=== PATIENT | male | born 1970 | race Caucasian/White ===

== ENCOUNTER 2016-07-22 18:23 | Emergency (ER) | payer OTHER ==
[2016-07-22] MEDS ORDERED: ONDANSETRON ODT 4 MG TABLET TL STA (19:47)
[2016-07-22] MEDS ORDERED: oxyCOD/ACETAMIN 5 MG/325 MG TABLET PO STA (19:47)
[2016-07-22] MEDS ORDERED: oxyCOD/ACETAMIN 5 MG/325 MG TABLET PO ONE (19:48)
[2016-07-22] MEDS ORDERED: ONDANSETRON ODT 4 MG TABLET ONE (19:48)
--- NOTE | 2016-07-22 19:49 | ED Physician Documentation ---
PD HPI Fall - Stated complaint Stated Complaint: R ELBOW/CHEST WALL INJURY - Chief complaint Chief Complaint: Trauma Ch/Bk - History obtained from History obtained from: Patient, Family - History of Present Illness Mechanism of injury: Slipped (off ladder) Where injury occurred: Home Timing - onset: Last night Injury(ies) location: Head, Chest, Right Upper Extremity (elbow) Pain level max: 8 Pain level now: 7 Quality of pain: Pain, Aching, Dull Associated symptoms: No: LOC, AMS, Amnesia, Seizures, Ear drainage, Nasal drainage, Neck pain, Weakness, Paresthesias, Dyspnea, Nausea / vomiting, Hematemesis, Abdominal distension Symptoms improve with: Rest Worsens with: Movement, Palpation Contributing factors: No: Anticoagulated, Intoxicated Similar symptoms before: Has not had sx before Recently seen: Not recently seen Review of Systems Constitutional: denies: Fever, Chills Respiratory: denies: Dyspnea, Cough, Wheezing GI: denies: Nausea, Vomiting, Diarrhea Skin: denies: Rash Musculoskeletal: denies: Neck pain, Back pain Neurologic: denies: Headache PD PAST MEDICAL HISTORY - Past Medical History Past Medical History: Yes Cardiovascular: Hypertension - Past Surgical History Past Surgical History: Yes HEENT: Myringotomy (tubes) - Present Medications Home Medications: Ambulatory Orders Medication Instructions Recorded Confirmed Lisinopril 20 mg PO DAILY 07/22/16 07/22/16 Modafinil 100 mg PO DAILY 07/22/16 07/22/16 Ondansetron Odt [Zofran] 4 mg TL Q6H PRN #20 tablet 07/22/16 Oxycodone HCl/Acetaminophen 1 - 2 each PO Q6H PRN #20 tablet 07/22/16 [Percocet 5-325 mg Tablet] Zolpidem Tartrate [Ambien] 12.5 mg PO DAILY PM 07/22/16 07/22/16 diazePAM [Valium] 5 mg PO TID PRN #15 tablet 07/22/16 - Allergies Allergies/Adverse Reactions: Allergies Allergy/AdvReac Type Severity Reaction Status Date / Time No Known Drug Allergies Allergy Verified 07/22/16 18:33 - Social History Does the pt smoke?: No Smoking Status: Never smoker Does the pt drink ETOH?: Yes Does the pt have substance abuse?: No - Immunizations Immunizations are current?: Yes - POLST Patient has POLST: No PD ED PE NORMAL - Vitals Vital signs reviewed: Yes - General General: Alert and oriented X 3, No acute distress - HEENT HEENT: PERRL, Moist mucous membranes, Other (abrasion to the forehead.) - Neck Neck: Supple, no meningeal sign, No bony TTP - Cardiac Cardiac: RRR, Strong equal pulses - Respiratory Respiratory: No respiratory distress, Clear bilaterally, Other (ecchymosis and TTP over the R upper ribs. No crepitus. ) - Back Back: No spinal TTP - Derm Derm: Warm and dry - Extremities Extremities: Other (TTP over the R radial head and elbow. Pain with supination and pronation. NVI.) - Neuro Neuro: Alert and oriented X 3 - Psych Psych: Normal mood, Normal affect Results - Vitals Vitals: Vital Signs - 24 hr 07/22/16 07/22/16 18:29 21:00 Temperature 36.6 C Heart Rate 104 H 110 H Respiratory 16 16 Rate Blood Pressure 130/90 H 136/91 H O2 Saturation 100 97 Oxygen O2 Source Room air - Rads (name of study) R elbow xray Radiology: Prelim report reviewed, EMP read contemporaneously, See rad report ( Acute displaced radial head fracture. No dislocation. Large elbow joint effusion. ) ribs xray Radiology: Prelim report reviewed, EMP read contemporaneously, See rad report ( Nondisplaced anterior right fourth rib fracture. Occult fractures of the right fourth, fifth, and sixth ribs not excluded given the adjacent pleural thickening. No acute pulmonary process. ) PD MEDICAL DECISION MAKING - ED course Complexity details: reviewed results, re-evaluated patient, considered differential, d/w patient, d/w family ED course: Patient is a 46-year-old male who fell last night at home off of a ladder. Has a displaced right radial head fracture. Placed in a sling. Discussed the case with Dr. Esparza, orthopedics will follow up the patient in the office. Also has a right fourth rib fracture. No pneumothorax or hemothorax. Pain well controlled. Will place on pain medication for home. Ambulating well. No evidence of intracranial hemorrhage or skull fracture that require repair. GCS 15. Patient counseled regarding signs and symptoms for which I believe and urgent re-evaluation would be necessary. Patient with good understanding of and agreement to plan and is comfortable going home at this time This document was made in part using voice recognition software. While efforts are made to proofread this document, sound alike and grammatical errors may occur. Departure - Departure Disposition: 01 Home, Self Care Clinical Impression: Radial head fracture, closed Qualifiers: Encounter type: initial encounter Fracture alignment: displaced Laterality: right Qualified Code(s): S52.121A - Displaced fracture of head of right radius, initial encounter for closed fracture Contusion of rib on right side Qualifiers: Encounter type: initial encounter Qualified Code(s): S20.211A - Contusion of right front wall of thorax, initial encounter Condition: Good Instructions: ED Contusion Vs Minor Fx Rib, ED Fx Upper Ext Follow-Up: Mark Arnett MD [Primary Care Provider] - Prescriptions: Oxycodone HCl/Acetaminophen [Percocet 5-325 mg Tablet] 1 - 2 each PO Q6H PRN # 20 tablet PRN Reason: pain diazePAM [Valium] 5 mg PO TID PRN #15 tablet PRN Reason: Spasms Ondansetron Odt [Zofran] 4 mg TL Q6H PRN #20 tablet PRN Reason: Nausea / Vomiting Comments: Wear the sling until released by orthopedics. Return if you worsen.Do not drink alcohol or drive while on narcotic pain medicine. Note that many narcotic pain relievers also contain tylenol/acetaminophen. Please ensure that your total dose of acetaminophen from all sources does not exceed 3 grams (3000mg) per day. You may constipated on this medication, take a stool softener such as "Colace" twice a day while you are on it. Also recommend a [id number] laxative such as senna or MiraLAX any day that you do not have a bowel movement. If you received narcotic pain medication in the emergency department, do not drive or operate machinery for the next 24 hours. Discharge Date/Time: 07/22/16 21:01
--- NOTE | 2016-07-22 20:08 | XRAY Preliminary Report ---
Exam: XR Elbow 3 View RT IMPRESSION: 1. Acute displaced radial head fracture. 2. No dislocation. 3. Large elbow joint effusion. [facility] SITE ID: [id number]
[2016-07-22] MEDS ORDERED: diazePAM 5 MG TABLET PO STA (20:46)
[2016-07-22] MEDS ORDERED: oxyCODONE/ACET 5/325 Prepack 4 PO STA (20:46)
[2016-07-22] MEDS ORDERED: diazePAM 5 MG TABLET PO ONE (20:47)
[2016-07-22] MEDS ORDERED: oxyCODONE/ACET 5/325 Prepack 4 PO ONE (20:48)
[2016-07-22 21:01] VITALS: BP 136/91
--- NOTE | 2016-07-22 21:18 | XRAY Report ---
EXAM: RIGHT ELBOW RADIOGRAPHY EXAM DATE: 07/22/2016 07:35 PM. CLINICAL HISTORY: Fall. COMPARISON: None. TECHNIQUE: 3 views. FINDINGS: Bones: Acute impacted and displaced volar radial head fracture with 3 mm of displacement of the radia l head fragment in a distal direction. Joints: Large elbow joint effusion. No dislocation is noted. Soft Tissues: Normal. No soft tissue swelling. IMPRESSION: 1. Acute displaced radial head fracture. 2. No dislocation. 3. Large elbow joint effusion. [facility] Referring Provider Line: [phone] SITE ID: [id number]
--- NOTE | 2016-07-22 21:26 | XRAY Preliminary Report ---
Exam: XR Ribs w/PA Chest RT IMPRESSION: 1. Nondisplaced anterior right fourth rib fracture. Occult fractures of the right fourth, fifth and s ixth rib is not excluded given the adjacent pleural thickening. 2. No acute pulmonary process. [facility] SITE ID: [id number]
--- NOTE | 2016-07-22 22:36 | XRAY Report ---
EXAM: RIGHT RIB RADIOGRAPHY EXAM DATE: 07/22/2016 07:34 PM. CLINICAL HISTORY: Pain after a fall. COMPARISON: None. TECHNIQUE: PA chest and 2 views of the right ribs. FINDINGS: Bones: Cortical step-off is noted in the anterior right fourth rib. Pleural thickening is also noted adjacent to the lateral right fourth, fifth, and sixth ribs. Lungs: No focal opacities evident. No pneumothorax or pleural effusions. Mediastinum: Heart and cardiomediastinal contours are unremarkable. Other: None. IMPRESSION: 1. Nondisplaced anterior right fourth rib fracture. Occult fractures of the right fourth, fifth, and sixth ribs not excluded given the adjacent pleural thickening. 2. No acute pulmonary process. [facility] Referring Provider Line: [phone] SITE ID: [id number]
== END 2016-07-22 21:01 | disposition home or self-care (01) ==
LOC: ED 18:23
DX: S52.121A Displaced fracture of head of right radius, initial encounter for closed fracture (principal); S22.41XA Multiple fractures of ribs, right side, initial encounter for closed fracture; W11.XXXA Fall on and from ladder, initial encounter; Y92.019 Unspecified place in single-family (private) house as the place of occurrence of the external cause; I10 Essential (primary) hypertension
CPT/HCPCS: 71101; 73080; 99283; A9270; Q0162

== ENCOUNTER 2016-07-23 20:57 | Outpatient (CLI) | payer OTHER ==
--- NOTE | 2016-07-23 21:53 | CT Preliminary Report ---
Exam: CT Upper Extremity Right W/O Preliminary impression: There is impacted, displaced fracture through the dorsal aspect of the radial head. No other fractures are seen. No evidence of dislocation. There is a joint effusion. There is e owen within the dorsal subcutaneous fat. No emergent findings. Full subspecialty report to follow. SITE ID: [id number]
--- NOTE | 2016-07-24 14:39 | CT Report ---
EXAM: RIGHT ELBOW CT WITHOUT CONTRAST EXAM DATE: 07/23/2016 09:10 PM. CLINICAL HISTORY: Radial head fracture. COMPARISON: Plain x-ray done 07/22/2016. TECHNIQUE: Thin-section axial images were acquired of the elbow without contrast. Post-processing: Co sanjay and sagittal reformats. Other: None. In accordance with CT protocol optimization, one or more of the following dose reduction techniques w ere utilized for this exam: automated exposure control, adjustment of mA and/or KV based on patient s ize, or use of iterative reconstructive technique. FINDINGS: Bones: Minimally impaction type displaced coronally oriented fracture through the anterior half of th e radial head. There is about 2.8 mm of depression of the anterior articular surface. No involvement of the radial neck. Ulna and distal humerus show no fractures. Small calcific loose body seen in the posterior aspect of the radiocapitellar joint on series 6 image 56. Some marginal osteophytes are seen at the ulnar trochlear groove on series 7 image 29 for example. Joints: Additionally, moderate joint effusion. Musculature: Normal. No fatty atrophy. Other: None. IMPRESSION: 1. Minimally displaced impaction type fracture oriented coronally, through the anterior half of the r adial head is about 2.8 mm of depression of the articular surface. 2. Small focal calcific loose body posterior aspect of radiocapitellar joint. 3. Marginal osteophytosis at the ulnar trochlear groove. 4. Moderate joint effusion. [facility] Referring Provider Line: [phone] SITE ID: [id number]
== END 2016-07-23 20:58 | disposition home or self-care (01) ==
LOC: DI 20:57
PROVIDERS: ATTEND Orthopaedic Surgery
DX: S52.121A Displaced fracture of head of right radius, initial encounter for closed fracture (principal); M24.021 Loose body in right elbow; M25.721 Osteophyte, right elbow; M25.421 Effusion, right elbow

== ENCOUNTER 2017-01-07 05:08 | Outpatient (CLI) | payer OTHER ==
[2017-01-07 05:40] LABS: CALCIUM 9.5 mg/dL (8.5-10.3); CREATININE 0.8 mg/dL (0.6-1.2); POTASSIUM 3.4 mmol/L (3.5-5.0)
[2017-01-07 06:23] LABS: HEMOGLOBIN A1C 0.63 g/dL
== END 2017-01-07 05:09 | disposition home or self-care (01) ==
LOC: LAB 05:08
PROVIDERS: ATTEND Family Medicine
DX: I10 Essential (primary) hypertension (principal); R73.01 Impaired fasting glucose
CPT/HCPCS: 36415; 80048; 83036

== ENCOUNTER 2017-02-19 15:47 | Emergency (ER) | payer OTHER ==
[2017-02-19] MEDS ORDERED: LIDOCAINE 2000 MG/500 ML 2,000 MG/500 ML BAG IV STA (15:52)
[2017-02-19] MEDS ORDERED: ONDANSETRON 4 MG/2 ML VIAL IVP STA (15:52)
--- NOTE | 2017-02-19 15:52 | ED Physician Documentation ---
PD HPI ABD PAIN - Stated complaint Stated Complaint: R SIDE PX - History obtained from History obtained from: Patient, Family - History of Present Illness Timing - onset: Today Timing - duration: Days (1) Timing - details: Gradual onset Pain level max: 10 Pain level now: 10 Quality: Aching, Pain Location: Other (R flank) Improved by: Other (nothing) Worsened by: Other (nothing) Associated symptoms: Nausea. No: Fever, Hematemesis, Diarrhea, Constipation, Melena, Hematochezia, Dysuria, Hematuria, Chest pain, Dizzy Similar symptoms before: Has not had sx before Recently seen: Not recently seen Review of Systems Constitutional: denies: Fever, Chills Nose: denies: Rhinorrhea / runny nose, Congestion Throat: denies: Sore throat Cardiac: denies: Chest pain / pressure Respiratory: denies: Cough GI: denies: Abdominal Pain, Nausea, Vomiting, Diarrhea Skin: denies: Rash Musculoskeletal: denies: Neck pain Neurologic: denies: Focal weakness, Numbness, Headache PD PAST MEDICAL HISTORY - Past Medical History Cardiovascular: Hypertension - Past Surgical History Past Surgical History: Yes HEENT: Myringotomy (tubes) - Present Medications Home Medications: Ambulatory Orders Medication Instructions Recorded Confirmed Lisinopril 20 mg PO DAILY 07/22/16 07/22/16 Modafinil 100 mg PO DAILY 07/22/16 07/22/16 Ondansetron Odt [Zofran] 4 mg TL Q6H PRN #20 tablet 07/22/16 Oxycodone HCl/Acetaminophen 1 - 2 each PO Q6H PRN #20 tablet 07/22/16 [Percocet 5-325 mg Tablet] Zolpidem Tartrate [Ambien] 12.5 mg PO DAILY PM 07/22/16 07/22/16 diazePAM [Valium] 5 mg PO TID PRN #15 tablet 07/22/16 Ondansetron Odt [Zofran] 4 mg TL Q6H PRN #20 tablet 02/19/17 Oxycodone HCl/Acetaminophen 1 - 2 each PO Q6H PRN #20 tablet 02/19/17 [Percocet 5-325 mg Tablet] Tamsulosin [Flomax] 0.4 mg PO DAILY PRN #10 capsule 02/19/17 - Allergies Allergies/Adverse Reactions: Allergies Allergy/AdvReac Type Severity Reaction Status Date / Time No Known Drug Allergies Allergy Verified 07/22/16 18:33 - Social History Does the pt smoke?: No Smoking Status: Never smoker Does the pt drink ETOH?: Yes Does the pt have substance abuse?: No - Immunizations Immunizations are current?: Yes - POLST Patient has POLST: No PD ED PE NORMAL - Vitals Vital signs reviewed: Yes - General General: Alert and oriented X 3, Other (appears in pain) - HEENT HEENT: PERRL, Moist mucous membranes - Neck Neck: Supple, no meningeal sign - Cardiac Cardiac: RRR, Strong equal pulses - Respiratory Respiratory: No respiratory distress, Clear bilaterally - Abdomen Abdomen: Soft, Non tender, Non distended - Back Back: No CVA TTP, No spinal TTP - Derm Derm: Warm and dry - Neuro Neuro: Alert and oriented X 3 - Psych Psych: Normal mood, Normal affect Results - Vitals Vitals: Vital Signs - 24 hr 02/19/17 02/19/17 15:56 16:33 Temperature 36.9 C Heart Rate 96 86 Respiratory 15 18 Rate Blood Pressure 151/120 H 138/78 H O2 Saturation 96 Oxygen O2 Source Room air PD MEDICAL DECISION MAKING - ED course Complexity details: reviewed results, re-evaluated patient, considered differential, d/w patient, d/w family ED course: Patient is a 47-year-old male who presents to the emergency department with abrupt onset right flank pain. Bedside ultrasound reveals mild hydronephrosis and urine dipstick reveals hematuria without evidence of infection. He was given Zofran as well as IV lidocaine which resolved his pain. Will place on pain medications for home and follow-up with his PCP. Patient counseled regarding signs and symptoms for which I believe and urgent re-evaluation would be necessary. Patient with good understanding of and agreement to plan and is comfortable going home at this time This document was made in part using voice recognition software. While efforts are made to proofread this document, sound alike and grammatical errors may occur. Departure - Departure Disposition: 01 Home, Self Care Clinical Impression: Renal colic on right side Condition: Good Instructions: ED Stone Renal W Colic Follow-Up: Mark Arnett MD [Primary Care Provider] - Within 1 week Prescriptions: Ondansetron Odt [Zofran] 4 mg TL Q6H PRN #20 tablet PRN Reason: Nausea / Vomiting Oxycodone HCl/Acetaminophen [Percocet 5-325 mg Tablet] 1 - 2 each PO Q6H PRN # 20 tablet PRN Reason: pain Tamsulosin [Flomax] 0.4 mg PO DAILY PRN #10 capsule PRN Reason: renal colic Comments: Return if you worsen. This should improve when the stone passes. Do not drink alcohol or drive while on narcotic pain medicine. Note that many narcotic pain relievers also contain tylenol/acetaminophen. Please ensure that your total dose of acetaminophen from all sources does not exceed 3 grams (3000mg) per day. You may constipated on this medication, take a stool softener such as "Colace" twice a day while you are on it. Also recommend a bsuz-rfh-reuknch laxative such as senna or MiraLAX any day that you do not have a bowel movement. If you received narcotic pain medication in the emergency department, do not drive or operate machinery for the next 24 hours. Discharge Date/Time: 02/19/17 17:11
[2017-02-19] MEDS ORDERED: SODIUM CHLORIDE 0.9% 1,000 ML IV ONE (15:53)
[2017-02-19] MEDS ORDERED: ONDANSETRON 4 MG/2 ML VIAL ONE (16:00)
[2017-02-19 16:34] VITALS: BP 138/78
== END 2017-02-19 17:11 | disposition home or self-care (01) ==
LOC: ED 15:47
DX: N23 Unspecified renal colic (principal); N13.30 Unspecified hydronephrosis; R31.9 Hematuria, unspecified; I10 Essential (primary) hypertension
CPT/HCPCS: 96361; 96365; 96375; 99283; 99284

== ENCOUNTER 2017-04-08 13:56 | Outpatient (CLI) | payer OTHER ==
[2017-04-08 14:25] LABS: CALCIUM 9.1 mg/dL (8.5-10.3); URIC ACID 5.5 mg/dL (2.6-7.2)
--- NOTE | 2017-04-08 19:06 | XRAY Report ---
SUPINE ABDOMEN: 04/08/2017 CLINICAL INDICATION: Back pain. FINDINGS: Supine views of the abdomen demonstrate a normal bowel gas pattern. There is a punctate calcification overlying the lower pole of the right kidney, suspicious for nephrolithiasis. Mild osteoarthritis is seen in the hip joints. IMPRESSION: NO EVIDENCE OF BOWEL OBSTRUCTION. LIKELY TINY CALCULUS IN THE LOWER POLE OF THE RIGHT KIDNEY. MILD OSTEOARTHRITIS OF THE HIPS. TD: 04/08/2017 19:06
== END 2017-04-08 13:57 | disposition home or self-care (01) ==
LOC: DI 13:56
PROVIDERS: ATTEND Specialist
DX: N20.0 Calculus of kidney (principal); N20.1 Calculus of ureter; M16.0 Bilateral primary osteoarthritis of hip
CPT/HCPCS: 36415; 74018; 82310; 83970; 84550

== ENCOUNTER 2018-09-20 20:12 | Outpatient (CLI) | payer OTHER ==
[2018-09-20 20:39] LABS: HEMOGLOBIN A1C 0.6 g/dL; HEMOGLOBIN A1C % 5.4 % (4.6-6.2)
== END 2018-09-20 20:13 | disposition home or self-care (01) ==
LOC: LAB 20:12
PROVIDERS: ATTEND Family Medicine
DX: R73.01 Impaired fasting glucose (principal); I10 Essential (primary) hypertension
CPT/HCPCS: 36415; 80048; 83036

== ENCOUNTER 2019-11-10 15:32 | Outpatient (CLI) | payer OTHER ==
[2019-11-10 16:10] LABS: ALBUMIN 4.2 g/dL (3.2-5.5); ALBUMIN/GLOBULIN RATIO 1.3 (1.0-2.2); ALKALINE PHOSPHATASE 70 IU/L (42-121); ALT ALANINE AMINOTRANSFERASE 62 IU/L (10-60); AST ASPARTATE AMINOTRANSFERASE 33 IU/L (10-42); BILIRUBIN,TOTAL 0.7 mg/dL (0.2-1.0); BUN - BLOOD UREA NITROGEN 16 mg/dL (6-20); CALCIUM 9.2 mg/dL (8.5-10.3); CARBON DIOXIDE - CO2 26 mmol/L (21-32); CHLORIDE 99 mmol/L (101-111); CHOL/HDL RATIO 2.7 (<5.0); CHOLESTEROL 187 mg/dL; CREATININE 0.9 mg/dL (0.6-1.2); GLUCOSE 120 mg/dL (70-100); HDL CHOLESTEROL 70 mg/dL; LDL CHOLESTEROL,CALCULATED 108 mg/dL; LDL/HDL RATIO 1.5 (<3.6); SODIUM 137 mmol/L (135-145); TOTAL PROTEIN 7.4 g/dL (6.7-8.2); VLDL CHOLESTEROL 9 mg/dL
[2019-11-10 20:03] LABS: HEMOGLOBIN A1c% 5.5 % (4.27-6.07)
== END 2019-11-10 15:33 | disposition home or self-care (01) ==
LOC: LAB 15:32
PROVIDERS: ATTEND Family Medicine
DX: Z00.00 Encounter for general adult medical examination without abnormal findings (principal); R73.01 Impaired fasting glucose; I10 Essential (primary) hypertension
CPT/HCPCS: 36415; 80053; 80061; 83036; 83721

== ENCOUNTER 2020-06-07 08:00 | Outpatient (CLI) | payer OTHER | END 2020-06-07 23:59 | disposition home or self-care (01) | LOC: LAB 08:00 | PROVIDERS: ATTEND Internal Medicine Gastroenterology | DX: Z01.812 Encounter for preprocedural laboratory examination (principal); Z20.822 Contact with and (suspected) exposure to COVID-19 ==

== ENCOUNTER 2021-03-21 04:24 | Outpatient (CLI) | payer OTHER ==
[2021-03-21 05:35] LABS: BUN - BLOOD UREA NITROGEN 10 mg/dL (6-20); CALCIUM 9.7 mg/dL (8.5-10.3); CARBON DIOXIDE - CO2 27 mmol/L (21-32); CHLORIDE 98 mmol/L (101-111); CHOL/HDL RATIO 2.5 (<5.0); CHOLESTEROL 156 mg/dL; CREATININE 0.8 mg/dL (0.6-1.2); GFR - MDRD 102 (>89); GLUCOSE 142 mg/dL (70-100); HDL CHOLESTEROL 63 mg/dL; POTASSIUM 3.8 mmol/L (3.5-5.0); SODIUM 136 mmol/L (135-145); TRIGLYCERIDES 28 mg/dL
[2021-03-21 10:28] LABS: ESTIMATED AVERAGE GLUCOSE 114 mg/dL (70-100); HEMOGLOBIN A1c% 5.6 % (4.27-6.07)
== END 2021-03-21 04:25 | disposition home or self-care (01) ==
LOC: LAB 04:24
PROVIDERS: ATTEND Family Medicine
DX: I10 Essential (primary) hypertension (principal); R73.01 Impaired fasting glucose
CPT/HCPCS: 36415; 80048; 80061; 83036; 83721

== ENCOUNTER 2021-04-02 10:02 | Emergency (ER) | payer OTHER ==
[2021-04-02] MEDS ORDERED: HYDROmorphone 1 MG/ML CARPUJECT IVP STA (10:24)
[2021-04-02] MEDS ORDERED: ONDANSETRON 4 MG/2 ML VIAL IVP STA (10:24)
[2021-04-02] MEDS ORDERED: KETOROLAC 30 MG/ML VIAL IVP STA (10:24)
[2021-04-02] MEDS ORDERED: SODIUM CHLORIDE 0.9% 1,000 ML IV STA (10:24)
[2021-04-02 11:18] LABS: BILIRUBIN,URINE NEGATIVE (NEGATIVE); GLUCOSE, URINE (UA) NEGATIVE (NEGATIVE); KETONES,URINE (UA) NEGATIVE (NEGATIVE); LEUKOCYTE ESTERASE, URINE NEGATIVE (NEGATIVE); NITRITE,URINE NEGATIVE (NEGATIVE); OCCULT BLOOD,URINE LARGE (NEGATIVE); PROTEIN,URINE NEGATIVE (NEGATIVE); UROBILINOGEN,URINE 0.2 (NORMAL) E.U./dL (NORMAL)
[2021-04-02 11:22] LABS: CLARITY,URINE CLEAR (CLEAR)
[2021-04-02] MEDS ORDERED: TAMSULOSIN 0.4 MG CAPSULE PO STA (11:27)
[2021-04-02] MEDS ORDERED: HYDROmorphone 0.5 MG/0.5 ML SYRINGE IVP STA (11:27)
[2021-04-02 11:30] LABS: BACTERIA,URINE None Seen /HPF (None Seen); RBC,URINE TNTC /HPF (0-5); SQUAMOUS EPITHELIAL CELL,UR NONE SEEN (<= Few); WBC,URINE 0-3 /HPF (0-3)
--- NOTE | 2021-04-02 11:38 | CT Report ---
PROCEDURE: Abdomen/Pelvis WO INDICATIONS: L flank pain, hematuria, h/o kidney stones TECHNIQUE: Noncontrast 3 mm thick sections acquired from the diaphragms to the symphysis. 5 mm coronal and sagi ttal reformats were then performed. For radiation dose reduction, the following was used: automated exposure control, adjustment of mA and/or kV according to patient size. COMPARISON: Abdominal radiograph dated 04/08/2017.. FINDINGS: Image quality: Excellent. ABDOMEN: Lung bases: Lung bases are clear. Heart size is normal. Solid organs: Liver and spleen are normal in size. Gallbladder is within normal limits. Pancreas i s normal in contours. No adrenal nodules. Kidneys are normal in size. Bilateral nonobstructing renal calculi are seen measures 2 to 3 mm in siz e. No right-sided or hydronephrosis or hydroureter. Mild to moderate left-sided hydronephrosis is see n with mild left perinephric fat stranding. 5 x 8 mm stone is seen in proximal left ureter just dista l to left UVJ. More distal portion of left ureter is normal in size. Peritoneum and bowel: Unenhanced bowel loops demonstrate normal wall thickness and caliber. No free fluid or air. Descending colon and sigmoid colon diverticulosis is seen, no CT evidence of acute di verticulitis. Appendix is visualized and is within normal limits. Nodes and vessels: No retroperitoneal or mesenteric adenopathy by size criteria. Aorta and inferior vena cava are normal in caliber. Miscellaneous: No ventral hernias. PELVIS: Genitourinary: Bladder wall thickness is normal. No calcified bladder stones are seen. Miscellaneous: No inguinal hernias or adenopathy. Bones: No suspicious bony lesions. No vertebral body compression fractures. IMPRESSION: 1. 5 x 8 mm left proximal ureteral stone just distal to left UPJ with shji-tf-zjcaztuh left-sided hyd ronephrosis and perinephric fat stranding. 2. Tiny bilateral nonobstructing renal calculi. No right-sided hydronephrosis or hydroureter. Normal- appearing urinary bladder. 3. No bowel obstruction or abnormal bowel wall thickening. Colonic diverticulosis without CT evidence of acute diverticulitis. Normal appendix. No free fluid of free air. Reviewed by: Fidel Garcia MD on 04/02/2021 11:37 AM PST Approved by: Fidel Garcia MD on 04/02/2021 11:37 AM [facility] Station ID: [id number]
[2021-04-02] MEDS ORDERED: oxyCODONE 5 MG TABLET PO STA (12:54)
--- NOTE | 2021-04-02 13:20 | ED Physician Documentation ---
PD HPI ABD PAIN - Stated complaint Stated Complaint: LT FLANK PX - Chief complaint Chief Complaint: Abd Pain - History obtained from History obtained from: Patient - Additional information Additional information: Pt comes to the ED with CC of sudden onset of severe L flank pain at around 0200 today. Pt had been having dark, painless urine for some days before, without dysuria or fever. Pt has a h/o urinary calculi, and states this feels similar. No nausea at this time. Review of Systems Ten Systems: 10 systems reviewed and negative Constitutional: reports: Reviewed and negative Eyes: reports: Reviewed and negative Ears: reports: Reviewed and negative Nose: reports: Reviewed and negative Throat: reports: Reviewed and negative Cardiac: reports: Reviewed and negative Respiratory: reports: Reviewed and negative GI: reports: Abdominal Pain (L flank) : reports: Hematuria Skin: reports: Reviewed and negative Musculoskeletal: reports: Reviewed and negative Neurologic: reports: Reviewed and negative Psychiatric: reports: Reviewed and negative Endocrine: reports: Reviewed and negative Immunocompromised: reports: Reviewed and negative PD PAST MEDICAL HISTORY - Past Medical History Cardiovascular: Hypertension - Past Surgical History Past Surgical History: Yes HEENT: Myringotomy (tubes) - Present Medications Home Medications: Ambulatory Orders Medication Instructions Recorded Confirmed Lisinopril 20 mg PO DAILY 07/22/16 07/22/16 Ondansetron Odt [Zofran] 4 mg TL Q6H PRN #20 tablet 07/22/16 Oxycodone HCl/Acetaminophen 1 - 2 each PO Q6H PRN #20 tablet 07/22/16 [Percocet 5-325 mg Tablet] Zolpidem Tartrate [Ambien] 12.5 mg PO DAILY PM 07/22/16 07/22/16 diazePAM [Valium] 5 mg PO TID PRN #15 tablet 07/22/16 modafiniL [Modafinil] 100 mg PO DAILY 07/22/16 07/22/16 Ondansetron Odt [Zofran] 4 mg TL Q6H PRN #20 tablet 02/19/17 Oxycodone HCl/Acetaminophen 1 - 2 each PO Q6H PRN #20 tablet 02/19/17 [Percocet 5-325 mg Tablet] Tamsulosin [Flomax] 0.4 mg PO DAILY PRN #10 capsule 02/19/17 Oxycodone HCl/Acetaminophen 1 - 2 each PO Q6H PRN #14 tablet 04/02/21 [Percocet 5-325 mg Tablet] Tamsulosin [Flomax] 0.4 mg PO DAILY #10 cap 04/02/21 - Allergies Allergies/Adverse Reactions: Allergies Allergy/AdvReac Type Severity Reaction Status Date / Time No Known Drug Allergies Allergy Verified 07/22/16 18:33 - Social History Does the pt smoke?: No Smoking Status: Never smoker Does the pt drink ETOH?: Yes Does the pt have substance abuse?: No - Immunizations Immunizations are current?: Yes - POLST Patient has POLST: No PD ED PE NORMAL - Vitals Vital signs reviewed: Yes - General General: Alert and oriented X 3, Well developed/nourished, Other (Pt appears significantly uncomfortable, otherwise NAD) - HEENT HEENT: Atraumatic, PERRL, EOMI, Moist mucous membranes - Neck Neck: Supple, no meningeal sign - Cardiac Cardiac: RRR, No murmur, Strong equal pulses - Respiratory Respiratory: No respiratory distress, Clear bilaterally - Abdomen Abdomen: Soft, Non distended, Other (mild L flank tend, no RB/guarding; oth erwise benign abdomen) - Derm Derm: Normal color, Warm and dry, No rash - Extremities Extremities: Normal ROM s pain - Neuro Neuro: Alert and oriented X 3 - Psych Psych: Normal mood, Normal affect Results - Vitals Vitals: Oxygen O2 Source Room air - Labs Labs: Laboratory Tests 04/02/21 11:10 Urine Color YELLOW Urine Clarity CLEAR Urine pH 6.0 Ur Specific [place] 1.010 Urine Protein NEGATIVE Urine Glucose (UA) NEGATIVE Urine Ketones NEGATIVE Urine Occult Blood LARGE H Urine Nitrite NEGATIVE Urine Bilirubin NEGATIVE Urine Urobilinogen 0.2 (NORMAL) Ur Leukocyte Esterase NEGATIVE Urine RBC TNTC H Urine WBC 0-3 Ur Squamous Epith Cells NONE SEEN Urine Bacteria None Seen Ur Microscopic Review INDICATED Urine Culture Comments NOT INDICATED - Rads (name of study) CT abd/pelvis noncontrast Radiology: Final report received, EMP read indepedently, See rad report (5x8 mm stone proximal L ureter) PD MEDICAL DECISION MAKING - ED course Complexity details: reviewed results, re-evaluated patient, considered differential, d/w patient ED course: Pt was treated symptomatically with IV fluids, Zofran, Toradol, Dilaudid, and Flomax, ultimately with significant improvement in pain. He was worked up with CT abd/pelvis and found to have a large, proximal stone in his L ureter. UA showed blood, but no infection. Results were discussed with the pt, who is established with urology. I have prescribed symptomatic treatment, and the patient will arrange follow-up with urology. We have discussed the usual indications for return. Departure - Departure Disposition: 01 Home, Self Care Clinical Impression: Ureteral calculus Condition: Stable Instructions: ED Stone Renal W Colic Prescriptions: Tamsulosin [Flomax] 0.4 mg PO DAILY #10 cap Oxycodone HCl/Acetaminophen [Percocet 5-325 mg Tablet] 1 - 2 each PO Q6H PRN #14 tablet PRN Reason: pain Comments: Your prescriptions have been electronically transmitted to [facility] in [place]. Discharge Date/Time: 04/02/21 13:31
[2021-04-02 13:32] VITALS: BP 120/91
== END 2021-04-02 13:31 | disposition home or self-care (01) ==
LOC: ED 10:02
DX: N13.2 Hydronephrosis with renal and ureteral calculous obstruction (principal); I10 Essential (primary) hypertension
CPT/HCPCS: 36415; 74176; 81001; 96361; 96374; 96375; 99282; 99284; A9270; J1170; 81003; 87086

== ENCOUNTER 2021-06-13 14:52 | Outpatient (CLI) | payer OTHER ==
[2021-06-13] MEDS ORDERED: IOVERSOL 320 100 ML VIAL IVP ONE ×2 (15:04→15:30)
--- NOTE | 2021-06-13 16:30 | CT Report ---
PROCEDURE: IVP INDICATIONS: HEMATURIA CONTRAST: IV CONTRAST: Optiray 320 ml: 140 PO CONTRAST: *NO PO CONTRAST TECHNIQUE: After the administration of oral and intravenous contrast, 5 mm thick sections acquired from the diap hragms to the symphysis. 5 mm thick coronal and sagittal reformats were acquired. For radiation dos e reduction, the following was used: automated exposure control, adjustment of mA and/or kV accordin g to patient size. COMPARISON: April 02, 2021. FINDINGS: Inferior chest: No focal consolidation, pleural effusion, or pneumothorax. No cardiomegaly or perica rdial effusion. Trace hiatal hernia. Gallbladder: The gallbladder is distended with a smooth thin wall. Biliary tree: No intra-or extrahepatic biliary ductal dilatation. Liver: The liver demonstrates normal enhancement, size, and contour. Spleen: Normal enhancement, size and morphology is seen. Pancreas: No contour deforming mass or inflammatory change. Adrenals: Normal size without masses. Kidneys/ureters: Punctate bilateral nephrolithiasis, measuring less than 3 mm. Symmetric enhancement without evidence of delayed nephrogram. A 5.3 mm, 320 Hounsfield units calculus is is again seen in t he left proximal ureter. Minimal left perinephric stranding and hydronephrosis. Vasculature: No evidence of aneurysm or other significant vascular pathology. Lymphatic system: No pathologic enlargement by size criteria. GI/mesentery: No evidence of intestinal obstruction. Descending/sigmoid diverticulosis. Normal appear ance of the appendix. Peritoneum/Retroperitoneum: No free intraperitoneal gas or large collection. Urinary bladder: The urinary bladder is distended with a smooth thin wall. Pelvic organs: No significant abnormality. Bones/soft tissues: No significant abnormality. IMPRESSION: 1.No significant interval change of the left ureteral calculus positioning. Reviewed by: Gigi Francisco MD on 06/13/2021 4:29 PM PDT Approved by: Gigi Francisco MD on 06/13/2021 4:29 PM PDT Station ID: [id number]
== END 2021-06-13 14:53 | disposition home or self-care (01) ==
LOC: DI 14:52
PROVIDERS: ATTEND Urology
DX: N20.1 Calculus of ureter (principal); R31.9 Hematuria, unspecified
CPT/HCPCS: 36415; 74178; 82565; Q9967

== ENCOUNTER 2022-04-20 01:33 | Emergency (ER) | payer OTHER ==
[2022-04-20] MEDS ORDERED: oxyCODONE 5 MG TABLET PO STA (01:51)
[2022-04-20] MEDS ORDERED: CHERRY SYRUP 10 ML UDC PO ONE (01:51)
[2022-04-20] MEDS ORDERED: DEXAMETHASONE 10 MG/ML VIAL PO STA (01:51)
[2022-04-20] MEDS ORDERED: KETOROLAC 30 MG/ML VIAL IM STA (01:51)
[2022-04-20] MEDS ORDERED: oxyCODONE/ACET 5/325 Prepack 4 PO STA (01:52)
--- NOTE | 2022-04-20 01:55 | ED Physician Documentation ---
PD HPI URI - Stated complaint Stated Complaint: COVID + - Chief complaint Chief Complaint: Heent - History obtained from History obtained from: Patient - History of Present Illness Timing - onset: How many days ago (3) Timing duration: Days (3) Timing details: Gradual onset, Still present Associated symptoms: Fever, Chills, Sweats, Nasal congestion, Rhinorrhea, Sore throat, Dry cough Contributing factors: Sick contact ( sick with similar) Improves by: Rest, Medication Worsened by: Activity Similar symptoms before: Diagnosis (COVID-19) Recently seen: Not recently seen - Additional information Additional information: 52-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 He has had symptoms for 3 days and they are worse tonight. His chief complaint is a headache and sore throat and he is not getting adequate relief with the use of ibuprofen and Tylenol. He is unable to sleep. He denies significant dyspnea and feels that he is able to hydrate himself adequately. Review of Systems Constitutional: reports: Fever, Chills, Myalgias, Fatigue, Sweats Ears: denies: Ear pain Nose: reports: Rhinorrhea / runny nose, Congestion Throat: reports: Sore throat Cardiac: denies: Chest pain / pressure, Palpitations Respiratory: reports: Cough. denies: Dyspnea GI: denies: Vomiting, Diarrhea : denies: Dysuria, Frequency Skin: denies: Rash Musculoskeletal: denies: Neck pain, Back pain, Extremity pain Neurologic: reports: Headache. denies: Generalized weakness, Focal weakness, Numbness, Head injury, LOC PD PAST MEDICAL HISTORY - Past Medical History Past Medical History: Yes Cardiovascular: Hypertension Psych: Anxiety - Past Surgical History Past Surgical History: Yes HEENT: Myringotomy (tubes) - Present Medications Home Medications: Ambulatory Orders Medication Instructions Recorded Confirmed Lisinopril 20 mg PO DAILY 07/22/16 04/20/22 Zolpidem Tartrate [Ambien] 12.5 mg PO DAILY PM 07/22/16 04/20/22 diazePAM [Valium] 5 mg PO TID PRN #15 tablet 07/22/16 04/20/22 modafiniL [Modafinil] 100 mg PO DAILY 07/22/16 04/20/22 Tamsulosin [Flomax] 0.4 mg PO DAILY #10 cap 04/02/21 04/20/22 - Allergies Allergies/Adverse Reactions: Allergies Allergy/AdvReac Type Severity Reaction Status Date / Time No Known Drug Allergies Allergy Verified 04/20/22 01:46 - Social History Does the pt smoke?: No Smoking Status: Never smoker Does the pt drink ETOH?: Yes Does the pt have substance abuse?: No - Immunizations Immunizations are current?: Yes - POLST Patient has POLST: No PD ED PE NORMAL - Vitals Vital signs reviewed: Yes (hypertensive mild ) - General General: Alert and oriented X 3, No acute distress, Well developed/nourished, Other (appears fatigued) - HEENT HEENT: Atraumatic, PERRL, EOMI, Other (right TM is clear the left is with central inflammation and retained landmarks. pharynx with mildly swollen erythematous uvula ) - Neck Neck: Supple, no meningeal sign, No bony TTP - Cardiac Cardiac: RRR, No murmur - Respiratory Respiratory: No respiratory distress, Other (course symetric breath sounds. 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 He is treated in the emergency department with dexamethasone and Toradol and we will provide some Percocet for his use at home. He does not have indication for antiviral. He does have some inflammation in the left middle ear and we have provided some dexamethasone and we will follow this clinically. Departure - Departure Clinical Impression: COVID-19 Condition: Stable Instructions: COVID-19 [facility], Flu and Cold: Nutrition, Prevention and Treatment Tips Follow-Up: Mark Arnett MD [Physician No Access] - Comments: Kashif, today it looks like you have COVID-19 and you are the worst of your symptoms are a headache and sore throat. Sleep is recommended with COVID and the pain medication should help with this. In addition you have some inflammation to the left TM along the umbo and this may resolve with the dexamethasone given today. Get well.
[2022-04-20 02:04] VITALS: BP 115/91
== END 2022-04-20 02:15 | disposition home or self-care (01) ==
LOC: ED 01:33
DX: U07.1 COVID-19 (principal)
CPT/HCPCS: 96372; 99283; A9270

== ENCOUNTER 2022-04-21 08:57 | Emergency (ER) | payer OTHER ==
[2022-04-21] MEDS ORDERED: SODIUM CHLORIDE 0.9% 1,000 ML IV STA (09:33)
[2022-04-21] MEDS ORDERED: LIDOCAINE VISCOUS 2% 15 ML UDC MM STA (09:46)
--- NOTE | 2022-04-21 09:48 | ED Physician Documentation ---
PD HPI URI - Stated complaint Stated Complaint: C+ THROAT PX/HEAD PX - Chief complaint Chief Complaint: Heent - History obtained from History obtained from: Patient - Additional information Additional information: Patient is a 52-year-old male presenting for evaluation of a sore throat that is been present for 3 days. He has recently tested positive for COVID. He was seen yesterday in our emergency department and given a dose of Decadron. He has been using acetaminophen ibuprofen. He was given for Percocet which did help him get some sleep yesterday. He has had a cough which is nonproductive. He has nasal congestion. His picked up a decongestant for him yesterday but he has not yet tried it. He is using tea which helps his sore throat. He is requesting more pain medication to help him get some sleep. Review of Systems Constitutional: denies: Fever Nose: reports: Congestion Throat: reports: Sore throat Cardiac: denies: Chest pain / pressure Respiratory: denies: Dyspnea GI: denies: Abdominal Pain, Vomiting Musculoskeletal: denies: Back pain Neurologic: denies: Headache PD PAST MEDICAL HISTORY - Past Medical History Past Medical History: Yes Cardiovascular: Hypertension Psych: Anxiety - Past Surgical History Past Surgical History: Yes HEENT: Myringotomy (tubes) - Present Medications Home Medications: Ambulatory Orders Medication Instructions Recorded Confirmed Lisinopril 20 mg PO DAILY 07/22/16 04/20/22 Zolpidem Tartrate [Ambien] 12.5 mg PO DAILY PM 07/22/16 04/20/22 diazePAM [Valium] 5 mg PO TID PRN #15 tablet 07/22/16 04/20/22 modafiniL [Modafinil] 100 mg PO DAILY 07/22/16 04/20/22 Tamsulosin [Flomax] 0.4 mg PO DAILY #10 cap 04/02/21 04/20/22 Oxycodone HCl/Acetaminophen 1 each PO Q6H PRN #10 tablet 04/21/22 [Percocet 5-325 mg Tablet] - Allergies Allergies/Adverse Reactions: Allergies Allergy/AdvReac Type Severity Reaction Status Date / Time No Known Drug Allergies Allergy Verified 04/21/22 09:12 - Social History Does the pt smoke?: No Smoking Status: Never smoker Does the pt drink ETOH?: Yes Does the pt have substance abuse?: No - Immunizations Immunizations are current?: Yes - POLST Patient has POLST: No PD ED PE NORMAL - General General: Alert and oriented X 3, No acute distress, Well developed/nourished - HEENT HEENT: Atraumatic, Ears normal, Moist mucous membranes, Pharynx benign (No oral swelling, erythema or exudate) - Neck Neck: Supple, no meningeal sign - Cardiac Cardiac: RRR - Respiratory Respiratory: No respiratory distress, Clear bilaterally - Abdomen Abdomen: Soft, Non tender - Derm Derm: Warm and dry - Extremities Extremities: No edema - Neuro Neuro: Alert and oriented X 3, No motor deficit, Normal speech Results - Vitals Vitals: Vital Signs - 24 hr 04/21/22 04/21/22 09:07 10:42 Temperature 37 C Heart Rate 94 90 Respiratory 20 20 Rate Blood Pressure 139/100 H 133/93 H O2 Saturation 100 96 Oxygen O2 Source Room air - Labs Labs: Laboratory Tests 04/21/22 09:50 Group A Strep Rapid Negative PD Medical Decision Making - ED course ED course: Patient is a 52-year-old gentleman presenting for evaluation of sore throat in the setting of recent COVID diagnosis. He is one of our emergency physicians. His vital signs are stable and he does not require hospitalization for treatment of COVID. His lungs are clear.His primary concern is ongoing sore throat despite use of Decadron yesterday and difficulty with sleep.Strep test is negat yvrose. Throat exam is unremarkable with no exudate or signs of abscess or deep space infection. No meningismus. Patient was given IV fluids And viscous lidocaine. Patient was given a small amount of pain medication to help relieve his symptoms so that he can sleep.He is also advised to continue with supportive care. He is counseled on concerning symptoms to return for. Departure - Departure Disposition: 01 Home, Self Care Clinical Impression: COVID-19, Viral pharyngitis Condition: Stable Instructions: ED Pharyngitis Viral Prescriptions: Oxycodone HCl/Acetaminophen [Percocet 5-325 mg Tablet] 1 each PO Q6H PRN #10 tablet PRN Reason: pain Comments: Your strep test is Negative.I am hoping you are starting to feel better after receiving IV fluids. Please make sure to continue to stay hydrated and really push the fluids through the course of your illness. I would recommend adding honey to tea or warm water to see if this also helps soothe your throat. Adding a decongestant like Sudafed may also help With clearing up your congestion. I have sent a small amount of narcotic pain medication to [facility] in [place]. I am prescribing a short course of narcotic pain medication for you. These are potentially dangerous and addictive medications that should be used carefully. These medications may constipate you. Take an [id number] stool softener (docusate) twice daily with plenty of water while taking these medications. If you go 24 hours without a bowel movement, take [id number] miralax, per package instructions. Do not drink or drive while taking these medications. If you received narcotic or sedating medications while in the emergency department, do not drive for 24 hours. Store this medication in a safe, secure place and out of reach of children. It is a violation of federal law to give or sell this medication to another person or to use in a manner other than prescribed. The ED will not refill narcotic prescriptions, including prescriptions lost or stolen. To dispose of unwanted medications: 1. [facility] [address] in [place] has a medication drop box. They accept prescription medications (in pill form) Friday through Friday 9:00 a.m. to 5:00 p.m. 2. The [facility] [employer] accepts prescription medications (in pill form only) for disposal year round. Call for more in formation. 3. Contact the [facility] for the next [facility] sponsored prescription drug collection event. , x7310, or x4570; Note that many narcotic pain relievers also contain Tylenol/acetaminophen. Please ensure that your total dose of acetaminophen from all sources does not exceed 3 g (3000 mg) per day. Discharge Date/Time: 04/21/22 10:50
[2022-04-21 10:11] LABS: RAPID STREP SCREEN Negative (Negative)
[2022-04-21 10:43] VITALS: BP 133/93
== END 2022-04-21 10:50 | disposition home or self-care (01) ==
LOC: ED 08:57
DX: J02.8 Acute pharyngitis due to other specified organisms (principal); U07.1 COVID-19
CPT/HCPCS: 87070; 87430; 99283

== ENCOUNTER 2023-03-19 05:21 | Outpatient (CLI) | payer OTHER ==
[2023-03-19 07:03] LABS: ALBUMIN 4.6 g/dL (3.2-5.5); ALBUMIN/GLOBULIN RATIO 1.5 (1.0-2.2); ALKALINE PHOSPHATASE 70 IU/L (42-121); ALT ALANINE AMINOTRANSFERASE 36 IU/L (10-60); AST ASPARTATE AMINOTRANSFERASE 20 IU/L (10-42); BILIRUBIN,TOTAL 0.4 mg/dL (0.2-1.0); BUN - BLOOD UREA NITROGEN 12 mg/dL (6-20); CALCIUM 9.4 mg/dL (8.5-10.3); CARBON DIOXIDE - CO2 27 mmol/L (21-32); CHLORIDE 104 mmol/L (101-111); CHOL/HDL RATIO 2.8 (<5.0); CHOLESTEROL 167 mg/dL; CREATININE 0.9 mg/dL (0.6-1.3); GFR - MDRD 88 (>89); GLUCOSE 109 mg/dL (74-104); HDL CHOLESTEROL 59 mg/dL; LDL CHOLESTEROL,CALCULATED 96 mg/dL; LDL/HDL RATIO 1.6 (<3.6); POTASSIUM 3.7 mmol/L (3.5-4.5); SODIUM 140 mmol/L (135-145); TOTAL PROTEIN 7.6 g/dL (6.4-8.9); TRIGLYCERIDES 62 mg/dL (48-352); VLDL CHOLESTEROL 12 mg/dL
[2023-03-19 10:23] LABS: ESTIMATED AVERAGE GLUCOSE 105 mg/dL (70-100); HEMOGLOBIN A1c% 5.3 % (4.27-6.07)
== END 2023-03-19 05:22 | disposition home or self-care (01) ==
LOC: LAB 05:21
PROVIDERS: ATTEND Family Medicine
DX: I10 Essential (primary) hypertension (principal); Z13.220 Encounter for screening for lipoid disorders; R73.01 Impaired fasting glucose
CPT/HCPCS: 36415; 80053; 80061; 83036; 83721